=== PATIENT | male | born 1955 | race Caucasian/White ===

== ENCOUNTER 2022-09-07 10:37 | Outpatient (CLI) | payer MEDICARE, SELFPAY ==
--- NOTE | ~2022-09-07 | US_ITS ---
Testicular ultrasound with doppler. Indication: Pain. Technique: Real-time sonography the scrotum was performed. Color flow Doppler and Doppler spectral an alysis were performed. Findings: The testes are homogeneous in echotexture bilaterally. There is no evidence of an intrates ticular mass. The right testis measures 4.9 x 3.9 x 3.3 cm and the left 5.1 x 3.7 x 3.7 cm. There is color-flow seen to both testes. Arterial and venous spectral waveforms are seen in both testes. There is no sonographic evidence of torsion. Right epididymis unremarkable. Small right hydrocele noted. T here is a 4.2 x 3.7 x 4.2 cm cystic mass in the region of the left epididymal head, with low-level in ternal echoes. There is an additional adjacent similar-appearing smaller mass measuring 1.8 cm in max imum diameter. Impression: Multiple left epididymal head cysts and/or spermatoceles, largest measuring up to 4.2 cm in diameter. No testicular mass or torsion. Small right hydrocele. Reviewed, dictated and finalized at location M. OGICS SPECIALIST Impression: Multiple left epididymal head cysts and/or spermatoceles, largest measuring up to 4.2 cm in diameter. No testicular mass or torsion. Small right hydrocele.
== END 2022-09-07 10:38 | disposition home or self-care (01) ==
PROVIDERS: PCP Nurse Practitioner Family; Visit Provider Urology
DX: N50.812 Left testicular pain (principal); N50.3 Cyst of epididymis; N43.3 Hydrocele, unspecified
CPT/HCPCS: 76870; 93976

== ENCOUNTER 2023-01-29 11:14 | Emergency (ER) | payer MEDICARE, SELFPAY ==
--- NOTE | 2023-01-29 11:19 | ED.SKABFB ---
HPI - Skin/Abscess/Foreign Bdy General Chief complaint: Skin/Abscess/Foreign Body Stated complaint: Skin Sore/Toe Time Seen by Provider: 01/29/23 11:19 Source: patient and RN notes reviewed History of Present Illness HPI narrative: Patient is a 67-year-old male who presents to urgent care with complaints of a skin sore to the 2nd right toe. Patient states that he noticed it several days ago and is became a increased and redness. Patient is wanting a referral to a retort cooler. Denies any fever, nausea or vomiting. Patient has clean the wound but otherwise not done anything for treatment. Patient states he believes his shoe is rubbing on the toe. Patient does have severe hammertoe. No other acute complaints. No acute distress noted. Patient aware of the plan of care. Some parts of this dictation were generated by voice recognition software and may contain typographical and/or grammatical inaccuracies. Related Data Home Medications Medication Instructions Recorded Confirmed losartan 100 mg tablet 100 mg PO DAILY 01/29/23 01/29/23 naproxen 500 mg tablet 500 mg PO BID 01/29/23 01/29/23 oxycodone 10 mg tablet 10 mg PO TID 01/29/23 01/29/23 Allergies Allergy/AdvReac Type Severity Reaction Status Date / Time duloxetine AdvReac Unknown LACK OF Verified 01/29/23 11:18 ERECTIONS lisinopril AdvReac Unknown DRY COUGH Verified 01/29/23 11:18 Review of Systems Review of Systems: CONSTITUTIONAL: Denies fever, chills, or sweats. EYES: Denies visual changes, redness, or discharge. ENT: Denies rhinorrhea, congestion, sore throat, or otalgia. CARDIOVASCULAR: Denies chest pain, palpitations, or edema. RESPIRATORY: Denies cough or dyspnea. GASTROINTESTINAL: Denies abdominal pain, nausea, vomiting, or diarrhea. GENITOURINARY: Denies dysuria or hematuria. SKIN: Reports of a wound to the right 2nd toe MUSCULOSKELETAL: Denies back pain, joint pain, or myalgia. NEUROLOGIC: Denies headache, numbness, or weakness. All other systems reviewed are negative, except as documented in HPI. [facility]LY [facility] Social History Social History Smoking status: Never smoker Alcohol intake: never Comments At the time of my signature, I reviewed and agree with the nursing past medical, surgical, social, and family history. There is no relevant family history pertinent to the patient complaint. Exam Narrative: GENERAL: This is a well-nourished, well-developed patient, in no apparent distress. HEAD: normocephalic, atraumatic. EYES: PERRL. Sclera clear/white. Vision is grossly intact. EARS: External ears normal NOSE: External nose normal with no obvious nasal discharge, nares without redness, no rhinorrhea. THROAT: Mucous membranes moist NECK: Neck supple SKIN: Scabbed circular wound with surrounding 2 x 2 cm of erythema and mild edema to the PIP of the 2nd right toe NEURO: awake, alert, and oriented to person, place and time. There were no obvious focal neurologic abnormalities. EXTREMITIES: 2 x 2cm circular region of erythema and mild edema to the PIP of the 2nd right toe. Positive strong right pedal pulse with capillary refill less than 2 seconds. Range of motion right lower extremity within normal limits. Course Course Level of Care: Express Care Visit Vital Signs Vital signs: Vital Signs Temperature 98.8 F 01/29/23 11:20 Pulse Rate 73 01/29/23 11:20 Respiratory Rate 18 01/29/23 11:20 Blood Pressure 149/76 H 01/29/23 11:20 Pulse Oximetry 98 01/29/23 11:20 Oxygen Delivery Room Air 01/29/23 11:20 Temperature 98.8 F 01/29/23 11:20 Pulse Rate 73 01/29/23 11:20 Respiratory Rate 18 01/29/23 11:20 Blood Pressure 149/76 H 01/29/23 11:20 Pulse Oximetry 98 01/29/23 11:20 Oxygen Delivery Room Air 01/29/23 11:20 Reviewed- Patient is informed that they may have pre-hypertension or hypertension based on a blood pressure reading in the department. I recommend the patient call the primary care provider
[2023-01-29 11:20] VITALS: BP 149/76; PULSE 73; RESP 18; TEMP 37.1; O2SAT 98
== END 2023-01-29 11:57 | disposition home or self-care (01) ==
PROVIDERS: Emergency Provider Nurse Practitioner Family; PCP Nurse Practitioner Family
DX: L03.031 Cellulitis of right toe (principal); Z79.891 Long term (current) use of opiate analgesic
CPT/HCPCS: 99213; G0463

== ENCOUNTER 2023-04-15 07:58 | Day surgery (SDC) | payer MEDICARE, SELFPAY ==
[2023-03-19 13:58] VITALS: BMI 38.2
[2023-04-02 12:41] VITALS: BMI 38.7
--- NOTE | 2023-04-14 12:46 | P.PNAN_ITS ---
Anes - Initial Pre Proc Eval Procedure: Operation Date: 04/15/23 10:00 Proposed Procedures p Esophagogastroduodenoscopy - James Manning MD s Diagnostic Colonoscopy - James Manning MD Date/Time: 04/14/23 12:46 Surgeon: James Manning MD Pre Op Diagnosis: Dysphagia,Epigastric PN,Ulcerative Chronic Prociti Patient Data Age: 67 Gender: M Height: 1.75 m Weight: 119 kg Allergies Allergy/AdvReac Type Severity Reaction Status Date / Time duloxetine AdvReac Unknown LACK OF Verified 04/02/23 12:44 ERECTIONS lisinopril AdvReac Unknown DRY COUGH Verified 04/02/23 12:44 Home Medications Medication Instructions Recorded Confirmed Type losartan 100 mg tablet 100 mg PO DAILY 01/29/23 04/02/23 History naproxen 500 mg tablet 500 mg PO BID 01/29/23 04/02/23 History oxycodone 10 mg tablet 10 mg PO TID 01/29/23 04/02/23 History famotidine 40 mg tablet 40 mg PO DAILY 03/17/23 04/02/23 History metaxalone 800 mg tablet 800 mg PO TID 03/17/23 04/02/23 History sodium,potassium,mag sulfates 17.5 See Rx Instructions PO .COMPLEX 03/19/23 04/02/23 Rx gram-3.13 gram-1.6 gram oral soln #354 mL (Suprep Bowel Prep Kit) Patient hx anesthesia problems: none Family hx anesthesia problems: none Results Review: All pre-operative results and documents have been reviewed as part of the pre- operative evaluation. FORMERLY [facility] Past Medical History Medical History (Updated 04/14/23 @ 12:47 by German Ackerman MD) History of hypertension Obesity Surgical History Surgical History Hx of appendectomy Hx of carpal tunnel repair Hx of rotator cuff surgery Family History Family History Mother Lung cancer Father Carcinoma of colon Social History Social History Smoking status: Never smoker Alcohol intake: never Substance use: never Substance use type: does not use Living arrangements: alone Spiritual care concerns: No Anes - Eval Final PreProcedure Day of Procedure 04/14/23 12:46 Patient weight: obese Heart: regular rate and rhythm Lungs: clear to auscultation and normal air movement Airway: Mallampati scale class II Neurological: alert and oriented Last oral intake: >/= 8 hours ASA classification: III Emergent: no Anesthetic plan: proceed Anesthesia type and monitoring: general GIVS Results Review: All pre-operative results and documents have been reviewed as part of the pre-op erative evaluation. Informed Consent: The patient's anesthetic plan and its attendant risks and benefits were discussed with the patient/family/POA. Questions were solicited and answers provided to the satisfaction of the patient/family/POA.
[2023-04-15 08:50] VITALS: BP 136/78; PULSE 70; RESP 20; TEMP 36.8; O2SAT 97
[2023-04-15] MEDS: LACTATED RINGERS 1,000 ML 150 ML IV CONT (09:09)
--- NOTE | 2023-04-15 09:13 | WPDHPUPDATE1 ---
History and Physical Update Update Date/Time: 04/15/23 09:13 History and Physical has been reviewed, including an updated exam of the patient. There are NO changes in the patient's condition. Risks, benefits, and alternatives have been discussed and questions answered. Patient agrees to proceed with procedure.
[2023-04-15 10:51] VITALS: BP 93/60; PULSE 65; RESP 20; O2SAT 99
[2023-04-15 11:01] VITALS: BP 101/59; PULSE 71; RESP 18; O2SAT 100
[2023-04-15 11:11] VITALS: BP 119/76; PULSE 60; RESP 18; O2SAT 99
--- NOTE | 2023-04-15 12:22 | WPDANESPN ---
Anes - Prog Note Post-Op Date/Time: 04/15/23 12:22 Cardiovascular status: normal Respiratory status: normal Airway patency: baseline Mental status: baseline Post-Op hydration status: normal Vital Signs: Last Vital Signs Temp 36.8 C 04/15/23 08:50 Pulse 60 04/15/23 11:11 Resp 18 04/15/23 11:11 BP 119/76 04/15/23 11:11 Pulse Ox 99 04/15/23 11:11 O2 Del Method Room Air 04/15/23 11:11 Pain Score (VAS): 0 I/O: Intake & Output 04/14/23 04/15/23 04/15/23 23:59 07:59 15:59 Intake Total 300 Balance 300 Post-procedural complaints: none Patient Feedback: Patient satisfied with anesthetic care.
== END 2023-04-15 11:59 | disposition home or self-care (01) ==
PROVIDERS: PCP Nurse Practitioner Family; Visit Provider Internal Medicine Gastroenterology
PROC: 0DJ08ZZ Inspection of Upper Intestinal Tract, Via Natural or Artificial Opening Endoscopic (ICD-10-PCS; CPT 43235; principal; 2023-04-15 10:00)
PROC: 0DJD8ZZ Inspection of Lower Intestinal Tract, Via Natural or Artificial Opening Endoscopic (ICD-10-PCS; CPT 45378; 2023-04-15 10:00)
DX: K21.9 Gastro-esophageal reflux disease without esophagitis (principal)
CPT/HCPCS: 45378; 43450

== ENCOUNTER 2023-07-08 08:12 | Day surgery (SDC) | payer MEDICARE, SELFPAY ==
[2023-05-20 11:50] VITALS: BMI 36.9
[2023-06-22 14:21] VITALS: BMI 36.8
--- NOTE | 2023-07-08 08:21 | P.PNAN_ITS ---
Anes - Initial Pre Proc Eval Procedure: Operation Date: 07/08/23 12:30 Proposed Procedures p Esophagogastroduodenoscopy - James Manning MD Date/Time: 07/08/23 08:21 Surgeon: James Manning MD Pre Op Diagnosis: Reflux Esophagitis, Esophageal Stricture Patient Data Age: 68 Gender: M Height: 1.75 m Weight: 113 kg Allergies Allergy/AdvReac Type Severity Reaction Status Date / Time duloxetine AdvReac Unknown LACK OF Verified 07/08/23 11:42 ERECTIONS lisinopril AdvReac Unknown DRY COUGH Verified 07/08/23 11:42 Home Medications Medication Instructions Recorded Confirmed Type losartan 100 mg tablet 100 mg PO DAILY 01/29/23 07/08/23 History naproxen 500 mg tablet 500 mg PO BID 01/29/23 07/08/23 History oxycodone 10 mg tablet 10 mg PO TID 01/29/23 07/08/23 History metaxalone 800 mg tablet 800 mg PO TID 03/17/23 07/08/23 History omeprazole 40 mg capsule,delayed 40 mg PO .QAM #30 caps 04/19/23 07/08/23 Rx release Patient hx anesthesia problems: none Family hx anesthesia problems: none Results Review: All pre-operative results and documents have been reviewed as part of the pre- operative evaluation. [facility] Past Medical History Medical History (Updated 07/08/23 @ 12:17 by Duarte Rock DO) Chronic, continuous use of opioids oxycodone 10 mg TID History of hypertension Obesity Surgical History Surgical History Hx of appendectomy Hx of carpal tunnel repair Hx of rotator cuff surgery Family History Family History Mother Lung cancer Father Carcinoma of colon Social History Social History Smoking status: Never smoker Alcohol intake: never Substance use: never Substance use type: does not use Living arrangements: with family Spiritual care concerns: No Anes - Eval Final PreProcedure Day of Procedure 07/08/23 08:21 Patient weight: obese Heart: regular rate and rhythm Lungs: clear to auscultation Airway: Mallampati scale class II Neurological: alert and oriented Last oral intake: >/= 8 hours ASA classification: III Emergent: no Anesthetic plan: proceed Anesthesia type and monitoring: general GIVS and standard monitoring Results Review: All pre-operative results and documents have been reviewed as part of the pre- operative evaluation. Informed Consent: The patient's anesthetic plan and its attendant risks and benefits were discussed with the patient/family/POA. Questions were solicited and answers provided to the satisfaction of the patient/family/POA.
--- NOTE | 2023-07-08 11:40 | P.HP_ITS ---
History of Present Illness History of Present Illness Consent: Risks, benefits, and alternatives have been discussed and questions answered. Patient agrees to proceed with procedure. Chief complaint: Reflux Esophagitis, Esophageal Stricture Narrative: Betzaida López is a 68 year old male Presents for follow-up EGD . patient has a history of significant esophagitis erosions in distal esophageal stricturring. Two months ago this required dilatation. At that time patient was started on omeprazole 40mg p.o. daily. Since that time patient has done well. His heartburn has resolved. His difficulty swallowing. Patient presents today for follow-up EGD to document he says lesion. Family history noncontributory. Patient denies any bleeding or weight loss. Review of Systems Review of Systems: Review of Systems noncontributory. [facility] Past Medical History Medical History (Updated 04/15/23 @ 10:32 by James Manning MD) History of hypertension Obesity Surgical History Surgical History Hx of appendectomy Hx of carpal tunnel repair Hx of rotator cuff surgery Family History Family History Mother Lung cancer Father Carcinoma of colon Social History Social History Smoking status: Never smoker Alcohol intake: never Substance use: never Substance use type: does not use Living arrangements: with family Spiritual care concerns: No Meds Home Medications and Allergies Home Medications Medication Instructions Recorded Confirmed Type losartan 100 mg tablet 100 mg PO DAILY 01/29/23 06/22/23 History naproxen 500 mg tablet 500 mg PO BID 01/29/23 06/22/23 History oxycodone 10 mg tablet 10 mg PO TID 01/29/23 06/22/23 History metaxalone 800 mg tablet 800 mg PO TID 03/17/23 06/22/23 History omeprazole 40 mg capsule,delayed 40 mg PO .QAM #30 caps 04/19/23 06/22/23 Rx release Allergies Allergy/AdvReac Type Severity Reaction Status Date / Time duloxetine AdvReac Unknown LACK OF Verified 07/08/23 11:42 ERECTIONS lisinopril AdvReac Unknown DRY COUGH Verified 07/08/23 11:42 Exam Narrative: physical exam reveals patient to be alert. And stable. HEENT exam is unremarkable. Patient is anicteric. Lungs are clear to auscultation and percussion. Heart is with or extra sounds. Bowel Sounds are present soft nontender with no organomegaly. Digital external rectal exam is normal. Assessment and Plan Assessment and plan (1) GERD (gastroesophageal reflux disease): Code(s): K21.9 - Gastro-esophageal reflux disease without esophagitis Status: Acute Assessment and Plan: Patient had severe esophagitis and stricturing the esophagus noted by endoscopy in March of this year. Plan for follow up exam at this time to document healing.
[2023-07-08 11:45] VITALS: BP 148/86; PULSE 71; RESP 20; TEMP 37.3; O2SAT 98; BMI 38.2
[2023-07-08] MEDS: LACTATED RINGERS 1,000 ML 150 ML IV CONT (11:55)
[2023-07-08 13:08] VITALS: BP 122/67; PULSE 71; RESP 16; O2SAT 99
[2023-07-08 13:19] VITALS: BP 125/78; PULSE 65; RESP 16; O2SAT 100
[2023-07-08 13:28] VITALS: BP 125/83; PULSE 61; RESP 16; O2SAT 99
--- NOTE | 2023-07-08 13:54 | WPDANESPN ---
Anes - Prog Note Post-Op Date/Time: 07/08/23 13:54 Cardiovascular status: normal Respiratory status: normal Airway patency: baseline Mental status: baseline Post-Op hydration status: normal Vital Signs: Last Vital Signs Temp 37.3 C 07/08/23 11:45 Pulse 61 07/08/23 13:28 Resp 16 07/08/23 13:28 BP 125/83 07/08/23 13:28 Pulse Ox 99 07/08/23 13:28 O2 Del Method Room Air 07/08/23 13:28 Pain Score (VAS): 0 I/O: Intake & Output 07/07/23 07/08/23 07/08/23 23:59 07:59 15:59 Intake Total 400 Balance 400 Post-procedural complaints: none Patient Feedback: Patient satisfied with anesthetic care. Other Findings: Patient vital signs back to baseline. Patient denies nausea and vomiting. Patient's pain under control. Patient OK for discharge.
== END 2023-07-08 13:42 | disposition home or self-care (01) ==
PROVIDERS: PCP Nurse Practitioner Family; Visit Provider Internal Medicine Gastroenterology
PROC: 0DJ08ZZ Inspection of Upper Intestinal Tract, Via Natural or Artificial Opening Endoscopic (ICD-10-PCS; CPT 43235; principal; 2023-07-08 12:30)
DX: K21.9 Gastro-esophageal reflux disease without esophagitis (principal); Q39.4 Esophageal web
CPT/HCPCS: 43450

== ENCOUNTER 2023-09-24 07:46 | Day surgery (SDC) | payer MEDICARE, SELFPAY ==
[2023-09-15 09:46] VITALS: BMI 36.9
[2023-09-15 11:17] VITALS: BMI 37.0
--- NOTE | 2023-09-23 12:17 | WPDANESEPPF ---
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 Patient Data Age: 68 Gender: M Height: 1.75 m Weight: 114 kg Allergies Allergy/AdvReac Type Severity Reaction Status Date / Time duloxetine AdvReac Unknown LACK OF Verified 09/24/23 08:13 ERECTIONS lisinopril AdvReac Unknown DRY COUGH Verified 09/24/23 08:13 Home Medications Medication Instructions Recorded Confirmed Type losartan 100 mg tablet 100 mg PO DAILY 01/29/23 09/24/23 History naproxen 500 mg tablet 500 mg PO BID 01/29/23 09/24/23 History oxycodone 10 mg tablet 10 mg PO TID 01/29/23 09/24/23 History metaxalone 800 mg tablet 800 mg PO PRN PRN Muscle Spasticity 03/17/23 09/24/23 History omeprazole 20 mg capsule,delayed 20 mg PO .QAM #90 caps 07/08/23 09/24/23 Rx release Patient hx anesthesia problems: none Family hx anesthesia problems: none Results Review: All pre-operative results and documents have been reviewed as part of the pre-operative evaluation. [facility] Past Medical History Medical History (Updated 07/08/23 @ 12:17 by Duarte Rock DO) Chronic, continuous use of opioids oxycodone 10 mg TID History of hypertension Obesity Surgical History Surgical History Hx of appendectomy Hx of carpal tunnel repair Hx of rotator cuff surgery Family History Family History Mother Lung cancer Father Carcinoma of colon Social History Social History Smoking status: Never smoker Alcohol intake: current Alcohol use details: rarely Substance use: never Substance use type: does not use Living arrangements: alone Spiritual care concerns: No Anes - Eval Final PreProcedure Day of Procedure 09/23/23 12:17 Patient weight: obese Heart: regular rate and rhythm Lungs: clear to auscultation Airway: Mallampati scale class II Neurological: alert and oriented Last oral intake: >/= 8 hours ASA classification: III Emergent: no Anesthetic plan: proceed Anesthesia type and monitoring: general GIVS and standard monitoring Results Review: All pre-operative results and documents have been reviewed as part of the pre-operative evaluation. Informed Consent: The patient's anesthetic plan and its attendant risks and benefits were discussed with the patient/family/POA. Questions were solicited and answers provided to the satisfaction of the patient/family/POA.
--- NOTE | ~2023-09-24 | XR_ITS ---
EXAMINATION: XR fluoroscopy no charge DATE: 09/24/2023 10:04 INDICATION: Left second toe hammertoe surgery TECHNIQUE: A single fluoroscopic image of the dose of the left foot was obtained during procedure per formed by Dr. Hyman. Radiologist was not present for the imaging or procedure. The amount of fluor oscopy time used during this procedure was 0.1 minutes. COMPARISON: None. FINDINGS: Left second proximal interphalangeal joint arthrodesis with placement of an implant spanning the join t space which has been placed over an axillary directed wire which extends from the tuft of the dista l phalanx to the base of the proximal phalanx. Alignment of the arthrodesis appears near-anatomic. No fractures. 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 IMPRESSION: 1. Fluoroscopy utilized during left second proximal interphalangeal joint arthrodesis for reported hernandez mmertoe correction. See procedure note for further detail. Reviewed, dictated and finalized at location A. R ASSEMBLER IMPRESSION: 1. Fluoroscopy utilized during left second proximal interphalangeal joint arthr odesis for reported hammertoe correction. See procedure note for further detail .
--- NOTE | 2023-09-24 07:05 | WPDHPUPDATE1 ---
History and Physical Update Update Date/Time: 09/24/23 07:05 History and Physical has been reviewed, including an updated exam of the patient. There are NO changes in the patient's condition. Risks, benefits, and alternatives have been discussed and questions answered. Patient agrees to proceed with procedure.
[2023-09-24 08:16] VITALS: BP 138/78; PULSE 73; RESP 18; TEMP 36.9; O2SAT 97
[2023-09-24] MEDS: LACTATED RINGERS 1,000 ML 30 ML IV CONT (08:50)
[2023-09-24] MEDS: ceFAZolin SODIUM 2 GM/20 ML SW SYRINGE IV PUSH (09:38)
[2023-09-24 10:22] VITALS: BP 104/65; PULSE 64; RESP 16; O2SAT 100
[2023-09-24] MEDS: LIDOCAINE HCL 2% LOCAL INJ 20 ML VIAL 5 ML INFILTRATE (10:25)
--- NOTE | 2023-09-24 10:33 | W.PM.PROC2 ---
Procedure Note - Detailed Date of Procedure 09/24/23 Pre-op Diagnosis Hammer Toe Deformity Second Digit Left Foot Post-op Diagnosis Same Procedure Performed 1. Hammertoe repair second digit left foot. 2. Extensor tenotomy second digit left foot Surgeon Lion Hyman JR, DPM Anesthesia MAC and Local Indications Painful left second digit Description of Procedure Under mild sedation, the patient was brought in to the operating room, placed on the operating table in the supine position. A pneumatic ankle tourniquet was placed about the patient's ankle. Following monitored anesthesia care, local anesthesia was obtained about the left foot with a valles block about the second metatarsal, utilizing 10 mL of a 1:1 mixture of 2% Lidocaine plain and 0.5% Marcaine plain . The foot was then scrubbed, prepped, and draped in the usual aseptic manner. An Esmarch bandage was then used to exsanguinate the patient's foot and the pneumatic ankle tourniquet was then inflated. Attention was directed to the second digit of the left foot where a 3cm incision was made from the distal interphalangeal joint extending to the 2nd digit base of the proximal phalanx. A transverse tenotomy was created dorsal to the proximal interphalangeal joint, next the head of the proximal phalanx was resected with an oscillating saw blade, the [employer] hammertoe planer was used to denude and prepare the joint for the hammertoe implant from the base of the middle phalanx and distal proximal phalanx in a cannulated fashion. A straight size Medium [employer] Phalinx Hammertoe implant was positioned within the canals of the proximal and middle phalanx. Excellent correction of the hammertoe deformity was noted. I cut the end of the K wire and bent the end of the k wire . I reapproximated the subcutaneous structures with 4.0 Vicryl and the skin with 4-0 Monocryl. There was still slight elevation of the second digit so a small 1cm incision was made proximal to the corresponding metatarsal head. Next the long extensor tendon was tenotomized and the second digit noted to float into a better position parrallel with the adjacent digits. I reapproximated the subcutaneous structures with 4.0 Vicryl and the skin with 4-0 Monocryl. Upon completion of the procedure, the incisions were dressed with Steri-Strips, Adaptic, 4x4s, Kerlix, and Coban. The pneumatic ankle tourniquet was then deflated and a prompt hyperemic response was noted to all digits of the left foot. A surgical shoe was then applied. The patient did very well with the procedure and the anesthesia. The patient was transferred to the recovery room with vital signs stable and vascular status intact to all toes of the left foot. Following a period of postoperative monitoring, the patient will be discharged home on the following written and oral postoperative instructions: 1. The patient should keep the dressing clean, dry, and intact. Use a cast protector bag with showers. 2. The patient will be protected with a surgical shoe. 3. Patient should ice and elevate the affected foot when at rest. 4. The patient is to contact Dr. Hyman for all postop care and if any problems arise. 5. Prescriptions were written for Percocet 5/325 to be taken 1 p.o. q.4-6 hours as needed for severe pain. Implants [employer] size medium Phalinx Hammertoe implant Estimated Blood Loss 1 Drains No Packing No Pathology None sent Complications No immediate complications Condition Stable Disposition Same day
[2023-09-24 10:45] VITALS: BP 117/78; PULSE 60; RESP 16; O2SAT 98
--- NOTE | 2023-09-24 11:23 | SUR.PHASEII ---
LATE NOTE, 1042; SPOKE WITH DR AGUIRRE, VERBAL ORDERS RECEIVED REGARDING DC INSTRUCTIONS.
--- NOTE | 2023-09-24 12:37 | WPDANESPN ---
Anes - Prog Note Post-Op Date/Time: 09/24/23 12:37 Cardiovascular status: normal Respiratory status: normal Airway patency: baseline Mental status: baseline Post-Op hydration status: normal Vital Signs: Last Vital Signs Temp 36.9 C 09/24/23 08:16 Pulse 60 09/24/23 10:45 Resp 16 09/24/23 10:45 BP 117/78 09/24/23 10:45 Pulse Ox 98 09/24/23 10:45 O2 Del Method Room Air 09/24/23 10:45 Pain Score (VAS): 1 I/O: Intake & Output 09/23/23 09/24/23 09/24/23 23:59 07:59 15:59 Intake Total 150 Balance 150 Post-procedural complaints: none Patient Feedback: Patient satisfied with anesthetic care. Other Findings: Patient vital signs back to baseline. Patient denies nausea and vomiting. Patient's pain under control. Patient OK for discharge.
== END 2023-09-24 11:15 | disposition home or self-care (01) ==
PROVIDERS: PCP Nurse Practitioner Adult Health; Visit Provider Podiatrist Foot & Ankle Surgery
PROC: (CPT 28285; principal; 2023-09-24 09:15)
DX: M20.42 Other hammer toe(s) (acquired), left foot (principal)
CPT/HCPCS: 28285; 99199

== ENCOUNTER 2024-01-04 16:54 | Emergency (ER) | payer MEDICARE, SELFPAY ==
--- NOTE | ~2024-01-04 | XR_ITS ---
EXAMINATION: XR foot RT min 3V DATE: 01/04/2024 18:01 INDICATION: Right foot injury. TECHNIQUE: 4 views of right foot were obtained. COMPARISON: None. FINDINGS: There is mild hallux valgus. No fracture. There is chronic flattening of the heads of the s econd-fourth metatarsals, consistent with osteonecrosis (Freiberg's infraction). There is mild osteoa rthritis of first and second metatarsophalangeal joints and some of the interphalangeal joints. There are enthesophytes at the posterior and plantar aspects of calcaneal tuberosity. IMPRESSION: 1. Polyarticular osteoarthritis. 2. Mild hallux valgus. Reviewed, dictated and finalized at location E.
[2024-01-04 17:10] VITALS: BP 152/82; PULSE 90; RESP 18; TEMP 36.4; O2SAT 100
--- NOTE | 2024-01-04 17:55 | ED.GENADULT ---
HPI - General Adult General Chief complaint: Extremity Injury, Lower Stated complaint: Right foot toe injury Source: patient Mode of arrival: ambulatory Limitations: no limitations History of Present Illness HPI narrative: Patient presents for evaluation of right foot pain since yesterday. He indicates he was cutting a tree apart when a portion of the tree fell and landed on his right foot. He now has pain and bruising to the 4th digit of the affected foot. He has chronic pain everywhere , for which he takes oxycodone 10mg. He receives a quantity of #84 per month. He also takes ibuprofen and tylenol for his pain. He will not provide me with a numerical rating to the pain. Pain is worse with movement and weight-bearing. Related Data Home Medications Medication Instructions Recorded Confirmed losartan 100 mg tablet 100 mg PO DAILY 01/29/23 09/24/23 naproxen 500 mg tablet 500 mg PO BID 01/29/23 09/24/23 oxycodone 10 mg tablet 10 mg PO TID 01/29/23 09/24/23 metaxalone 800 mg tablet 800 mg PO PRN PRN Muscle Spasticity 03/17/23 09/24/23 Allergies Allergy/AdvReac Type Severity Reaction Status Date / Time duloxetine AdvReac Unknown LACK OF Verified 09/24/23 08:13 ERECTIONS lisinopril AdvReac Unknown DRY COUGH Verified 09/24/23 08:13 Review of Systems Review of Systems: CONSTITUTIONAL: Denies fever, chills, or sweats. EYES: Denies visual changes, redness, or discharge. ENT: Denies rhinorrhea, congestion, sore throat, or otalgia. CARDIOVASCULAR: Denies chest pain, palpitations, or edema. RESPIRATORY: Denies cough or dyspnea. GASTROINTESTINAL: Denies abdominal pain, nausea, vomiting, or diarrhea. GENITOURINARY: Denies dysuria or hematuria. SKIN: Reports bruising to the 4th digit of the right foot. MUSCULOSKELETAL: Reports pain in the 4th digit of the right foot. Denies other joint pain. NEUROLOGIC: Denies headache, numbness, dizziness, or weakness. PSYCHIATRIC: Denies anxiety or depression. [facility] Past Medical History Medical History Chronic, continuous use of opioids oxycodone 10 mg TID History of hypertension Obesity Surgical History Surgical History Hx of appendectomy Hx of carpal tunnel repair Hx of rotator cuff surgery Family History Family History Mother Lung cancer Father Carcinoma of colon Social History Social History Smoking status: Never smoker Alcohol intake: current Alcohol use details: rarely Substance use: never Substance use type: does not use Living arrangements: alone Gender identity (if verbalized by the patient): Male Spiritual care concerns: No Exam Narrative: GENERAL: Well-appearing, well-nourished, and in no acute distress. HEAD: Normocephalic, atraumatic. EYES: PERRLA and EOMI. ENT: Nares clear, no rhinorrhea or epistaxis. Mucous membranes moist. Oropharynx without tonsillar hypertrophy exudate or other lesions. Bilateral TMs pearly burrell nonbulging NECK: Supple. No adenopathy or masses. No carotid bruits or JVD CHEST: Clear to auscultation. No respiratory distress. No wheezes rales or rhonchi HEART: Regular rate and rhythm. No murmur heard. Normal peripheral pulses. ABDOMEN: Soft, nontender, nondistended, normal active bowel sounds. EXTREMITIES: Able to dorsi and plantar flex right foot. Able to wiggle all digits the right foot. Sensation intact all digits the right foot. There is no tenderness in any of the digits or any other aspect of the right foot. SKIN: There is ecchymosis noted to the 4th digit of the right foot and overlying the MTP joint of the 2nd digit of the right foot NEURO: No focal deficits. Alert and oriented x3. PSYCH: Normal mood and affect. Course Course Emergency Course: This i
== END 2024-01-04 18:30 | disposition home or self-care (01) ==
PROVIDERS: Emergency Provider Nurse Practitioner; PCP Nurse Practitioner Adult Health
DX: S90.31XA Contusion of right foot, initial encounter (principal); W20.8XXA Other cause of strike by thrown, projected or falling object, initial encounter; I10 Essential (primary) hypertension; E66.9 Obesity, unspecified; Z68.37 Body mass index [BMI] 37.0-37.9, adult
CPT/HCPCS: 73630; 99213; G0463

== ENCOUNTER 2025-08-15 11:54 | Outpatient (CLI) | payer MEDICARE, SELFPAY ==
--- OUTSIDE RECORDS SUMMARY | 2025-08-15 17:21 | XMS_ITS | Clinical Summary ---
Author Organization [facility] [place] [address] Care Team Providers Care Director Erp Name Role Phone MarshalBrenda MILI Primary Care Provider [phone] Allergies Active Allergy Reactions Criticality Noted Date Comments Duloxetine Hcl Other (see comment) 10/27/2024 Impotence Lisinopril Cough 01/04/2014 Hnvuaut-Ckxdae-Ylyft Pertussis Itching 01/04 Medications naproxen (NAPROSYN) 500 MG tablet Take 1 tablet (500 mg total) by mouth 2 (two) times daily as needed. Active metaxalone (SKELAXIN) 800 MG tablet Take 1 tablet (800 mg total) by mouth 3 (three) times daily as needed. Active losartan (COZAAR) 100 MG tablet Take 1 tablet (100 mg total) by mouth daily. Active omeprazole (PRILOSEC) 20 MG capsule Take 1 capsule (20 mg total) by mouth daily. Active oxyCODONE immediate release (ROXICODONE) 10 MG immediate release tablet TAKE 1 TABLET BY MOUTH THREE TIMES DAILY FOR CHRONIC PAIN Active acetaminophen (TYLENOL) 325 MG tablet Take 2 tablets (650 mg total) by mouth every 6 (six) hours as needed for Pain. Active Family History Medical History Relation Comments Cancer Father Cancer Mother Relation Status Comments Father Mother Social History Tobacco Use Types Packs/Day Years Used Date Smoking Tobacco: Never Smokeless Tobacco: Never Tobacco Cessation:Counseling Given: No Comments:na PHQ-2 Answer Date Recorded Patient Health Questionnaire-2 Score 0 10/27/2024 Sex and Gender Information Value Date Recorded Sex Assigned at Male 10/18/2024 1:20 PM HOUSEHOLD APPLIANCE ASSEMBLER Legal Sex Male 5:04 PM CDT Gender Identity Male 10/27/2024 10:15 AM HOUSEHOLD APPLIANCE ASSEMBLER Sexual Orientation Not on file Last Filed Vital Signs Vital Sign Reading Time Taken Comments Blood Pressure 136/77 10/27/2024 10:16 AM HOUSEHOLD APPLIANCE ASSEMBLER Pulse 65 10/27/2024 10:16 AM HOUSEHOLD APPLIANCE ASSEMBLER Temperature - - Respiratory Rate - - Oxygen Saturation - - Inhaled Oxygen Concentration - - Weight 114.1 kg (251 lb 9.6 oz) 025 10:16 AM HOUSEHOLD APPLIANCE ASSEMBLER Height 175.3 cm (5' 9) 10/27/2024 10:1 6 AM HOUSEHOLD APPLIANCE ASSEMBLER Body Mass Index 37.15 10/27/2024 10:16 AM HOUSEHOLD APPLIANCE ASSEMBLER Plan of Treatment Health Maintenance Due Date Last Done Comments Colorectal Cancer Screening Colonoscopy (10 Years) 1957 Hepatitis C 1975 Pneumococcal Vaccine: 50+ Years (1 of 1 - PCV) 2007 Zoster Vaccines (1 of 2) 2007 Annual Medicare Wellness Visit 2022 COVID-19 Vaccine ( - season) 2025 09/04/2023, 12/02/2022, 01/21/2021, Additional history exists Influenza Adult (#1) 2025 06/26/2023, 06/16/20 23 DTaP, Tdap and Td Vaccines (3 - Td or Tdap) 05/25/2033 05/25/2023, 09/27/2004 RSV Immunization or 60+ Years Completed 09/04/2023 PHQ-2 (Physician Venetie Ira) Completed 10/27/2024 Hepatitis A Vaccines Aged Out No long er eligible based on patient's age to complete this topic Meningococcal B Vaccine Aged Out No l onger eligible based on patient's age to complete this topic Meningococcal Vaccine Aged Out No torin nena eligible based on patient's age to complete this topic RSV Immunizations Under 20 Months Aged Out No longer eligible based on patient's age to complete this topic Insurance [facility] MEDICARE Care Teams Director Erp Relationship Specialty Start Date End Date Brenda Araya NP [address] [place] [address] PCP - General NURSE PRACTITIONER 10/18/24
--- OUTSIDE RECORDS SUMMARY | 2025-08-15 17:21 | XMS_ITS | Encounter Summary ---
Author Organization [facility] Address [address] [place] [address] Care Team Providers Care Marketing Administrator Name Role Phone Brandi Curran MD Primary Care Provider Encounter Details Date Type Department Care Team (Late st Contact Info) Description 02/09/2023 Lab Requisition [facility] - DermPath Lab [address] [place] [id number] Vamshi Mitchell MD [address] [address] Social History Tobacco Use Types Packs/Day Years Used Date Smoking Tobacco: Never Alcohol Use Standard Drinks/Week Comments No 0 (1 standard drink = 0.6 oz pur e alcohol) Sex and Gender Information Value Date Recorded Sex Assigned at Not on file Legal Sex Male 4:38 PM CDT Gender Identity Not on file Sexual Orientation Not on file 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 Not on file Not on file documented as of this encounter Plan of Treatment Not on file documented as of this encounter Procedures Procedure Name Priority Date/Time Associated Diagnosis Comments DERMATOPATHOLOGY Routine 02/05/2023 3:33 AM CDT documented in this encounter Results * DERMATOPATHOLOGY (02/05/2023 3:33 AM CDT) Case Report Dermatopathology Report Case: [id number] Authorizing Provider: Vamshi Mitchell MD Collected: 02/05/2023 03:33 AM Ordering Location: [facility] Received: 02/09/2023 06:49 AM Pathologist: Jasmine Murray MD Specimen: Skin, left upper forehead 4:27 PM T DERMATOPATHOLOGY LABORATORY Final Diagnosis Specimen A. SKIN, left upper forehead: BASAL CELL CARCINOMA (C44.619) PRESENT AT MARGIN DERMAL SCAR (L90.5) INCIDENTAL HYPERPLASTIC (HYPERTROPHIC) ACTINIC KERATOSIS (L57.0) PRESENT AT MARGIN (see microscopic description) 4:27 PM T DERMATOPATHOLOGY LABORATORY at 1627 CDT Clinical History [facility] Path#[id number] Check margins 4:27 PM CDT DERMATOPATHOLOGY LABORATORY Gross Description Specimen A: Received is one formalin filled container labeled with the patient's name and designated left upper forehead. The specimen consists of a non-oriented ellipse of skin measuring 21x8x5 mm. The epidermal surface is unremarkable. The margin is inked green. The 12 o'clock and 6 o'clock tips are submitted in cassette 1. The remainder of the ellipse is serially sectioned and submitted in cassette 2. Jar 0. 4:27 PM T DERMATOPATHOLOGY LABORATORY Microscopic Description Specimen A. SKIN, left upper forehead: Within the dermis there are aggregates of basaloid cells with a high nuclear to cytoplasmic ratio and peripheral palisading. BerEP4 stains the basaloid proliferation. This lesion is present at one tip of the specimen. There are fibroblasts and collagen bundles oriented parallel to the skin surface with elongated blood vessels, some of which are oriented perpendicular to the skin surface. There is incidental hyperkeratosis alternating with parakeratosis. There is epidermal hyperplasia with disorderly maturation of keratinocytes with nuclear pleomorphism confined to the lower half of the epidermis. This lesion is present at one tip of the specimen. 4:27 PM T DERMATOPATHOLOGY LABORATORY Disclaimer An external and internal positive and negative controls are appropriate for the histochemical, immunohistochemical and immunofluorescence stain(s) in this case (if any), except where stated explicitly. The performance characteristics of the stain(s) cited in this report were developed and its performance characteristic determined by the Dermatopathology Laboratory at [facility], directed by Dr. Mariposa Bennett. These tests need not be, and therefore are not, approved by the [place] Food and Drug Administration. The tests are used for clinical purposes. Billing Codes Specimen Charges Stain Charges 58154 1 47743 1 3 4:27 PM CDT DERMATOPATHOLOGY LABORATORY Embedded Images 3 4:27 PM CDT DERMATOPATHOLOGY LABORATORY Pathology/Cytolo gy TISSUE SPECIMEN FROM SKIN / Unknown 02/05/2023 3:33 AM CDT 02/09/2023 6:49 AM CDT Vamshi Mitchell MD LAB - PATHOLOGY/CYTOLOGY ORDER JEFFERSON Final Result DERMATOPATHOLOGY LABORATORY [facility] - Department of Dermatology [facility] Medicine [address] [place] [address], [address] [phone] documented in this encounter Visit Diagnoses Not on filedocumented in this encounter Care Teams Marketing Administrator Relationship Specialty Start Date End Date Brandi Curran MD [address] [place] [phone] PCP - General Family Medicine 01/04/14 documented as of this encounter
--- OUTSIDE RECORDS SUMMARY | 2025-08-15 17:21 | XMS_ITS | Clinical Summary ---
Author Organization [facility] Address [address] [place] [address] Care Team Providers Care Filler Shredder Machine Name Role Phone Brandi Curran MD Primary Care Provider [phone] Source Comments [facility],non-owned Affiliates and Associated Physician Practices is amultiple site organization consisting of ambulatory clinics and hospital sitesin [place], [place], [place] and [place]. This disclosure is being madepursuant to the Care Everywhere program and may not contain all information available regarding this patient. Last updated 18[employer] [facility] Allergies Active Allergy Reactions Criticality Noted Date Comments Diphtheria,Pertussis,Tetanus 014 Lisinopril 01/04/2014 Medications * Be aware that medications may not be up to date on this document. Alwaysverify current medications with the patient. hydrocodone-acet aminophen (NORCO) 10-325 MG tablet Take 1 Tab by mouth every 4 hours as needed. Active metaxalone (SKELAXIN) 800 MG tablet Take 800 mg by mouth 3 times daily as needed. Active losartan (COZAAR) 50 MG tablet Take 50 mg by mouth once daily. Active Omeprazole (PRILOSEC PO) Take 50 mg by mouth. Active tadalafil (CIALIS) 5 MG tablet Take 5 mg by mouth once as needed. 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 on file Not on file Last Filed Vital Signs Vital Sign Reading Time Taken Comments Blood Pressure - - Pulse - - Temperature - - Respiratory Rate - - Oxygen Saturation - - Inhaled Oxygen Concentration - - Weight 127 kg (280 lb) 01/04/2014 9:13 AM CDT Height 175.3 cm (5' 9) 01/04/2014 9:13 AM CDT Body Mass Index 41.35 01/04/2014 9:13 AM CDT Plan of Treatment Health Maintenance Due Date Last Done Comments COLOGUARD (AGES 45-75) - COL ON CA SCREENING 1957 COLON MONITORING 1957 COLONOSCOPY - COLON CA SCREENING 1957 CT COLONOGRAPHY - COLON CA SCREENING 1957 Colorectal Cancer Screening 1957 FIT - COLON CA SCREENING 1957 FLEX SIG - COLON CA SCREENING 1957 LIPID TESTING 1957 HEPATITIS C SCREENING 06/13/1975 DTAP/TDAP/TD VACCINES (1 - Tdap) 1976 PNEUMOCOCCAL VACCINE 50+ (1 of 1 - PCV) 2007 Respiratory Syncytial Virus (RSV) Vaccine Pt: or over 60 yrs (1 - Risk 50-74 years 1-dose series) 2007 ZOSTER VACCINE (1 of 2) 2007 DEPRESSION SCREENING 09/27/2024 MEDICARE AWV CALENDAR YEAR 2024 COVID-19 VACCINE (1 - 2024-2 6 season) 2025 INFLUENZA VACCINE (#1) 2025 HEPATITIS B VACCINE Aged Out No longe r eligible based on patient's age to complete this topic HIB VACCINE Aged Out No longer eligi ble based on patient's age to complete this topic HPV VACCINE Aged Out No longer eligi ble based on patient's age to complete this topic MENINGOCOCCAL (Group B) VACC INE SHARED DECISION-MAKING Aged Out No longer eligibl e based on patient's age to complete this topic MENINGOCOCCAL GROUPS A/C/Y/W VACCINE Aged Out No longer eligible b ased on patient's age to complete this topic Insurance ANTHEM [facility] MANAGED MEDICARE ADV ANTHEM Member Subscriber Plan / Payer (Ef fective 2012-Present) Name:Betzaida Plaza Relation to Subscriber:Self Name:BETZAIDA PLAZA Payer ID:[id number] (NAIC) Type:PPO Address: [address] MANAGED MEDICARE ADV Care Teams Filler Shredder Machine Relationship Specialty Start Date End Date Brandi Curran MD [address] [place] [phone] PCP - General Family Medicine 01/04/14
--- OUTSIDE RECORDS SUMMARY | 2025-08-15 17:21 | XMS_ITS | Encounter Summary ---
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 Not on file Not on file documented as of this encounter Plan of Treatment Not on file documented as of this encounter Procedures Procedure Name Priority Date/Time Associated Diagnosis Comments DERMATOPATHOLOGY Routine 01/20/2023 3:33 AM CDT documented in this encounter Results * DERMATOPATHOLOGY (01/20/2023 3:33 AM CDT) Case Report Dermatopathology Report Case: [id number] Authorizing Provider: Vamshi Mitchell MD Collected: 01/20/2023 03:33 AM Ordering Location: [facility] Received: 01/22/2023 06:16 AM Pathologist: Aleshia Duke MD Specimen: Skin, left upper FH 12:21 PM CDT DERMATOPATHOLOGY LABORATORY Final Diagnosis Specimen A. SKIN, left upper FH: BASAL CELL CARCINOMA (C44.319) (see microscopic description and comment) 12:21 PM CDT DERMATOPATHOLOGY LABORATORY at 1221 CDT Clinical History ISK vs. [facility]CCA. Path# [id number] 12:21 PM CDT DERMATOPATHOLOGY LABORATORY Gross Description Specimen A: Received is one formalin filled container labeled with the patient's name and designated left upper FH. The specimen consists of a shave biopsy measuring 8x6p9md. Jar 0. 12:21 PM CDT DERMATOPATHOLOGY LABORATORY Microscopic Description Specimen A. SKIN, left upper FH: The specimen consists of aggregates of basaloid cells, located within the superficial dermis, with high nuclear to cytoplasmic ratio and peripheral palisading. COMMENT: The small size of the specimen limits subtyping of the lesion. 12:21 PM CDT DERMATOPATHOLOGY LABORATORY Disclaimer An external and internal positive and negative controls are appropriate for the histochemical, immunohistochemical and immunofluorescence stain(s) in this case (if any), except where stated explicitly. The performance characteristics of the stain(s) cited in this report were developed and its performance characteristic determined by the Dermatopathology Laboratory at [facility], directed by Dr. Mariposa Bennett. These tests need not be, and therefore are not, approved by the [place] Food and Drug Administration. The tests are used for clinical purposes. Billing Codes Specimen Charges Stain Charges 18965 1 12:21 PM CDT DERMATOPATHOLOGY LABORATORY Embedded Images 12:21 PM CDT DERMATOPATHOLOGY LABORATORY Pathology/Cytolo gy TISSUE SPECIMEN FROM SKIN / Unknown 01/20/2023 3:33 AM CDT 01/22/2023 6:16 AM CDT us Vamshi Mitchell MD LAB - PATHOLOGY/CYTOLOGY ORDER JEFFERSON Final Result DERMATOPATHOLOGY LABORATORY [facility] - Department of Dermatology [facility] Special[facility] Medicine [address] [place] [address], [address] [phone] documented in this encounter Visit Diagnoses Not on filedocumented in this encounter Care Teams Sound Cutter Relationship Specialty Start Date End Date Brandi Curran MD [address] [place] [phone] PCP - General Family Medicine 01/04/14 documented as of this encounter
--- OUTSIDE RECORDS SUMMARY | 2025-08-15 17:21 | XMS_ITS | Encounter Summary ---
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 on file Not on file documented as of this encounter Plan of Treatment Not on file documented as of this encounter Procedures Procedure Name Priority Date/Time Associated Diagnosis Comments DERMATOPATHOLOGY Routine 05/21/2023 3:33 AM CDT documented in this encounter Results * DERMATOPATHOLOGY (05/21/2023 3:33 AM CDT) Case Report Dermatopathology Report Case: [id number] Authorizing Provider: Vamshi Mitchell MD Collected: 05/21/2023 03:33 AM Ordering Location: [facility] DermPath Lab Received: 05/24/2023 03:58 PM Pathologist: Jasmine Murray MD Specimens: A) - Skin, right preauricular temporal sulcus B) - Skin, gluteal cleft 4:42 PM T DERMATOPATHOLOGY LABORATORY Final Diagnosis Specimen A. SKIN, right preauricular temporal sulcus: INTRADERMAL MELANOCYTIC NEVUS WITH CONGENITAL FEATURES (D22.9) DERMAL FIBROSIS (L90.5) Specimen B. 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 Nevus vs BCCA Path#[id number] B: Nevus r/o Atypia Path#[id number] 4:42 PM CDT DERMATOPATHOLOGY LABORATORY Gross Description Specimen A: Received is one formalin filled container labeled with the patient's name and designated right preauricular temporal sulcus. The specimen consists of a shave biopsy measuring 1x1x1 and 1x1x1 mm. Jar 0. Specimen B: Received is one formalin filled container labeled with the patient's name and designated gluteal cleft. The specimen consists of a shave biopsy measuring 4x4x1 mm. Jar 0. 4:42 PM CDT DERMATOPATHOLOGY LABORATORY Microscopic Description Specimen A. SKIN, right preauricular temporal sulcus: There are nests of cytologically bland melanocytes within the dermis. Some of these melanocytes are concentrated around blood vessels and adnexal structures. There is focal dermal fibrosis. Specimen B. SKIN, gluteal cleft: The specimen reveals a dome-shaped collection composed of an increased number of thickened collagen bundles arranged in a haphazard pattern. Verhoeff-Van Gieson (VVG) elastic stain highlights marked loss of elastic fibers within the collagen bundles. Additional deeper sections were obtained and reviewed. 4:42 PM CDT DERMATOPATHOLOGY LABORATORY Disclaimer An external and internal positive and negative controls are appropriate for the histochemical, immunohistochemical and immunofluorescence stain(s) in this case (if any), except where stated explicitly. The performance characteristics of the stain(s) cited in this report were developed and its performance characteristic determined by the Dermatopathology Laboratory at [facility], directed by Dr. Mariposa Bennett. These tests need not be, and therefore are not, approved by the [place] Food and Drug Administration. The tests are used for clinical purposes. Billing Codes Specimen Charges Stain Charges 97023 48112 1 1 77265 1 3 4:42 PM CDT DERMATOPATHOLOGY LABORATORY Embedded Images 3 4:42 PM CDT DERMATOPATHOLOGY LABORATORY Pathology/Cytology TISSUE SPECIMEN FROM SKIN / Unknown 05/21/2023 3:33 AM CDT 05/24/2023 3:58 PM CDT Miscellaneous samples (specimen) TISSUE SPECIMEN FROM SKIN / Unknown 05/21/2023 3:33 AM CDT 05/24/2023 3:58 PM CDT Result [facility] Vamshi Mitchell MD LAB - PATHOLOGY/CYTOLOGY ORDER JEFFERSON Final Result DERMATOPATHOLOGY LABORATORY [facility] - Department of Dermatology [facility] [address] [place] [address], [address] [phone] documented in this encounter Visit Diagnoses Not on filedocumented in this encounter Care Teams Dynamometer Tuner Relationship Specialty Start Date End Date Brandi Curran MD [address] [place] [address] [address] [place] [phone] PCP - General Family Medicine 01/04/14 documented as of this encounter
[2025-08-15 19:08] LABS: Cholesterol 176 mg/dL (0-200); HDL Direct 77 mg/dL; Triglycerides 62 mg/dL (<150)
[2025-08-15 20:37] LABS: Hemoglobin A1C 5.7 % (<5.7)
[2025-08-16 11:09] LABS: Lead, Blood (Adult) <1.0 ug/dL (0.0-3.4)
== END 2025-08-15 11:55 | disposition home or self-care (01) ==
PROVIDERS: PCP Nurse Practitioner Adult Health; Visit Provider Nurse Practitioner Adult Health
DX: R73.9 Hyperglycemia, unspecified (principal); I10 Essential (primary) hypertension; Z77.011 Contact with and (suspected) exposure to lead
CPT/HCPCS: 36415; 80061; 83036; 83655